=== PATIENT | female | born 1945 | race Caucasian/White ===

== ENCOUNTER 2018-01-12 09:28 | Day surgery (SDC) | payer MEDICARE, OTHER ==
[2018-01-12] MEDS ORDERED: Lactated Ringers 1,000 ML IV SCH (10:00)
[2018-01-12] MEDS ORDERED: Propofol 200 MG/20 ML SDV ONE (10:33)
[2018-01-12] MEDS ORDERED: fentaNYL 100 MCG/2 ML SDV ONE (10:33)
[2018-01-12] MEDS ORDERED: Midazolam 1 MG/ML 2 ML SDV ONE (10:34)
--- NOTE | 2018-01-13 08:30 | OR ---
DATE OF PROCEDURE: 01/12/2018 PREOPERATIVE DIAGNOSIS: Colon cancer screening. POSTOPERATIVE DIAGNOSIS: Diverticulosis. PROCEDURE: Colonoscopy to the cecum. ANESTHESIA: IV anesthesia with monitored anesthesia care. INDICATION: This 73-year-old white female is referred for a screening colonoscopy. She says her last colonoscopic exam was done 10 years ago. I counseled her for the procedure, including risks and alternatives, and she gave her informed consent to proceed. DESCRIPTION OF PROCEDURE: The patient was placed in the left lateral decubitus position. IV anesthesia was administered by the Anesthesia Service. Time-out was held. A rectal exam was performed, which was unremarkable. The flexible video Olympus colonoscope was introduced through her anus, up her rectum and out her colon, all the way to the cecum. En route, we saw multiple left-sided diverticula. There was no bleeding or inflammation associated with any of them. Once the cecum was reached, the scope was slowly withdrawn examining the mucosa throughout. No additional mucosal abnormalities were noted. No neoplastic lesions were seen. The scope was retroflexed in the rectum with the distal rectum appearing unremarkable. The scope was straightened and removed. She tolerated the procedure well. Issa Norton MD /[id number]
== END 2018-01-12 13:16 | disposition home or self-care (01) ==
LOC: JP.SDS 09:28
PROVIDERS: ATTEND Surgery
DX: Z12.11 Encounter for screening for malignant neoplasm of colon (principal); K57.30 Diverticulosis of large intestine without perforation or abscess without bleeding; I10 Essential (primary) hypertension; E11.9 Type 2 diabetes mellitus without complications; E66.9 Obesity, unspecified; F17.200 Nicotine dependence, unspecified, uncomplicated; E78.5 Hyperlipidemia, unspecified; Z86.010 Personal history of colon polyps; Z91.048 Other nonmedicinal substance allergy status
CPT/HCPCS: G0121; J2250; J2704; J3010; J7120

== ENCOUNTER 2021-09-21 10:06 | Day surgery (SDC) | payer MEDICARE, OTHER ==
[~2021-09-21 10:06] MED LIST: Sodium Chloride 0.9% 1,000 ML IV SCH
[2021-09-21] MEDS ORDERED: fentaNYL 100 MCG/2 ML SDV ONE (11:17)
[2021-09-21] MEDS ORDERED: Propofol 200 MG/20 ML SDV ONE ×2 (11:17→13:14)
[2021-09-21 11:40] LABS: CORONAVIRUS COVID-19 NAA NEGATIVE (NEGATIVE)
[2021-09-21] MEDS ORDERED: Acetaminophen/HYDROcodone 325-5 MG Tab PO ONE (11:51)
[2021-09-21] MEDS ORDERED: ceFAZolin 2 GM in Premix Bag 1 BAG IV ONE (12:00)
[2021-09-21] MEDS ORDERED: Lidocaine 1% with EPINEPHrine 1:100,000 50 ML MDV ONE (13:08)
[2021-09-21] MEDS ORDERED: Bupivacaine 0.5% 30 ML SDV ONE (13:08)
[2021-09-21] MEDS ORDERED: Lidocaine 1% with EPINEPHrine 1:100,000 50 ML MDV INJECT ONE (13:11)
[2021-09-21] MEDS ORDERED: Bupivacaine 0.5% 50 ML MDV INJECT ONE (13:11)
== END 2021-09-21 14:46 | disposition home or self-care (01) ==
LOC: JP.SDS 10:06
PROVIDERS: ATTEND Surgery
DX: L72.0 Epidermal cyst (principal); D36.10 Benign neoplasm of peripheral nerves and autonomic nervous system, unspecified; I12.9 Hypertensive chronic kidney disease with stage 1 through stage 4 chronic kidney disease, or unspecified chronic kidney disease; N18.30 Chronic kidney disease, stage 3 unspecified; E78.5 Hyperlipidemia, unspecified; E66.9 Obesity, unspecified; Z91.048 Other nonmedicinal substance allergy status; Z01.812 Encounter for preprocedural laboratory examination; Z20.822 Contact with and (suspected) exposure to COVID-19
CPT/HCPCS: 0241U; 11401; 11406; J0690; J2704; J3010; J3490; J7030; 88304; 88305